=== PATIENT | female | born 1960 | race Hispanic/Latino ===

== ENCOUNTER → 2019-01-20 | Outpatient (CLI) | payer OTHER | END | disposition home or self-care (01) | LOC: RAH 14:21 | PROVIDERS: ATTEND Internal Medicine | DX: Z12.31 Encounter for screening mammogram for malignant neoplasm of breast (principal) | CPT/HCPCS: 77067 ==

== ENCOUNTER 2025-03-07 20:27 | Emergency (ER) | payer OTHER ==
[~2025-03-07] VITALS: Ht 154.9 cm; Wt 83.9 kg
[2025-03-07 20:29] VITALS: TEMP 97.1
--- NOTE | 2025-03-07 20:30 | NUR ---
UA CUP PROVIDED
--- NOTE | 2025-03-07 20:38 | NUR ---
UA COLLECTED AND SENT
[2025-03-07 20:47] LABS: IMMATURE GRANULOCYTE ABSOLUTE 0.05 K/uL (0-1); NUCLEATED RED BLOOD CELLS 0.0 % (0.0-0.19); PLATELET COUNT (AUTO) 536 K/uL (130-400); RED BLOOD CELL COUNT(AUTO) 4.49 MIL/uL (4.00-5.50); RED CELL DISTRIBUTION WIDTH 18.5 % (11.0-15.5); WHITE BLOOD COUNT (AUTO) 12.3 K/uL (4.8-10.8)
[2025-03-07 20:50] LABS: APPEARANCE,URINE CLEAR (CLEAR); GLUCOSE, URINE (UA) 50 mg/dL (NEGATIVE); LEUKOCYTE ESTERASE ,URINE NEGATIVE Leu/uL (NEGATIVE); NITRATE,URINE NEGATIVE (NEGATIVE); OCCULT BLOOD,URINE MODERATE (NEGATIVE)
[2025-03-07 20:51] LABS: ADD UA MICROSCOPIC NO
--- NOTE | 2025-03-07 20:52 | NUR ---
ACTIVE VOMITING IN LOBBY. THERESA RAHMAN MADE AWARE
[2025-03-07 20:55] LABS: CREATININE 1.0 mg/dL (0.5-1.0); GLOMERULAR FILTR. RATE CALC 62.0 mL/min (>90); GLUCOSE,RANDOM 177.0 mg/dL (70-105); SODIUM SERUM 138.0 mmol/L (136-145); UREA NITROGEN, BLOOD 19.0 mg/dL (7-18)
--- NOTE | 2025-03-07 20:55 | NUR ---
REPORT TO LALITO RAHMAN
--- NOTE | 2025-03-07 20:57 | ERN ---
ED Note History of Present Illness Stated Complaint: ABD PAIN, CONSTIPATION Chief Complaint: Abdominal Pain Time Seen by MD: 20:40 Dictation: Patient is a 65-year-old female who presented to the ER complaining of left flank pain radiating to the left lower back. Stated the pain started around 6:30 p.m. which was 3 hours previous presentation to the ER, it was associated with the nausea and vomiting x1. Patient denies fever, chills, no urinary symptoms Allergies: Coded Allergies: Penicillins (Unverified Allergy, Unknown, 03/07/25) Home Meds Active Scripts Acetaminophen (Tylenol) 325 Mg Tablet, 1-2 TAB PO QIDP PRN for pain or fever for 7 Days, #30 TAB 0 Refills Prov:DANNY MARTÍNEZ MD 03/07/25 Ketorolac Tromethamine (Ketorolac Tromethamine) 10 Mg Tablet, 1 TAB PO Q6HPRN PRN for pain for 5 Days, #20 TAB 0 Refills Prov:DANNY MARTÍNEZ MD 03/07/25 Past Medical History Past Medical History: CAD, Diabetes-Type II, Hypertension Surgical History: Unknown Review of System Dictation NEGATIVE EXCEPT PER HPI Constitutional: Negative for fever,chills, and weight loss Eyes: Negative for injury, pain,redness, and discharge ENT: Negative for injury,pain or swelling Cardiovascular: denies chest pain, palpitations, and edema Respiratory: Negative for shortness of breath, cough, and wheezing, Abdomen/GI: Left inguinal area pain Back: Negative for injury and pain : Negative for injury, bleeding and discharge MS/Extremity: Negative for injury and deformity Skin: Negative for rash, and discoloration Neuro: Negative for headache, weakness, numbness, tingling, and seizure Psych: Negative for suicide ideation, homicidal ideation, and hallucinations Initial Vital Sign VS Vital Signs Date Time Temp Pulse Resp B/P (MAP) Pulse Ox O2 Delivery O2 Flow Rate FiO2 03/07/25 20:29 97.2 68 20 155/80 100 Room Air 03/07/25 21:11 0 21 Physical Exam Dictation General: awake, alert, NAD Head/Face: Normocephalic, atraumatic Eyes: PERRL, EOMI, vision at baseline ENT: oral cavity clear, TMs clear, no signs of infection Neck: Trachea midline, supple, no nuchal rigidity Cardiovascular: RRR, normal S1/S2, No MRGs, no JVD Respiratory: CTAB, no respiratory distress, No rales or wheezes Abdomen: Soft , left lower abdomen tenderness, left inguinal area with the nurse Genitourinary: Left CVA tenderness Skin: Warm, dry, normal turgor, no rash MS/Extremity: Pulses equal, no cyanosis, neurovascular intact, FROM Neuro: COAx4, GCS 15, strength 5/5, CN 2-12 intact, normal cerebellar exam, normal gait, Psych: Normal behavior, mood, and affect normal Results (Laboratory/Radiology) Laboratory/Radiology Laboratory Tests Test 03/07/25 20:40 White Blood Count 12.3 K/uL (4.8-10.8) H Red Blood Count 4.49 MIL/uL (4.00-5.50) Hemoglobin 10.8 g/dL (12.0-16.0) L Hematocrit 35.9 % (36-48) L Mean Corpuscular Volume 80.0 fL (79-99) Mean Corpuscular Hemoglobin 24.1 pg (27.0-33.0) L Mean Corpuscular Hemoglobin Concent 30.1 g/dL (32.0-36.0) L Red Cell Distribution Width 18.5 % (11.0-15.5) H Platelet Count 536 K/uL (130-400) H Mean Platelet Volume 9.5 fL (7.5-10.5) Immature Granulocyte % (Auto) 0.4 % (0-1) Neutrophils (%) (Auto) 64.5 % (40.0-77.0) Lymphocytes (%) (Auto) 25.0 % (21.0-51.0) Monocytes (%) (Auto) 8.0 % (3.0-13.0) Eosinophils (%) (Auto) 1.7 % (0.0-8.0) Basophils (%) (Auto) 0.4 % (0.0-5.0) Neutrophils # (Auto) 7.9 K/uL (1.8-7.7) H Lymphocytes # (Auto) 3.1 K/uL (1.0-4.8) Monocytes # (Auto) 1.0 K/uL (0.1-1.0) Eosinophils # (Auto) 0.21 K/uL (0.00-0.70) Basophils # (Auto) 0.05 K/uL (0.00-0.20) Absolute Immature Granulocyte (auto 0.05 K/uL (0-1) Nucleated Red Blood Cells 0.0 % (0.0-0.19) Red Blood Cell Morphology See comments Urine Color COLORLESS (YELLOW) Urine Appearance CLEAR (CLEAR) Urine pH 7.0 (5.0-8.0) Urine Specific Broussard 1.014 (1.001-1.031) Urine Protein NEGATIVE mg/dL (NEGATIVE) Urine Glucose (UA) 50 mg/dL (NEGATIVE) H Urine Ketones 5 mg/dL (NEGATIVE) H Urine Occult Blood MODERATE (NEGATIVE) H Urine Nitrate NEGATIVE (NEGATIVE) Urine Bilirubin NEGATIVE mg/dL (NEGATIVE) Urine Urobilinogen 0.2 mg/dL (0.2-1.0) Urine Leukocyte Esterase NEGATIVE Carolyn/uL Sodium Level 138 mmol/L (136-145) Potassium Level 4.0 mmol/L (3.5-5.1) Chloride Level 104 mmol/L (101-111) Carbon Dioxide Level 25 mmol/L (21-32) Blood Urea Nitrogen 19 mg/dL (7-18) H Creatinine 1.0 mg/dL (0.5-1.0) Glomerular Filtration Rate Calc 62 mL/min (>90) Random Glucose 177 mg/dL (70-105) H Total Calcium 8.4 mg/dL (8.5-10.1) L Troponin I High Sensitivity 14 ng/L (4-50) Lipase 27 U/L (16-77) ED Course ED Course Orders Procedure Category Date Status Time Vital Signs Per CPOE 03/07/25 Transmitted Routine 20:30 Saline Lock Iv CPOE 03/07/25 Transmitted 20:30 Cbc With Differential LAB 03/07/25 Complete 20:30 Lipase LAB 03/07/25 Complete 20:30 Urinalysis Profile LAB 03/07/25 Complete 20:30 Basic Metabolic Panel LAB 03/07/25 Complete 20:30 Ketorolac PHA 03/07/25 Complete Tromethamine 15mg/Ml 21:00 Ondansetron 4mg Inj PHA 03/07/25 Complete (Zofran 4mg Inj) 21:30 Ct Abdomen/Pelvis CT 03/07/25 Resulted W/Wo Contras 21:22 0.9%Nacl 1000ml (Ns PHA 03/07/25 Complete 1000ml) 21:30 Iohexol (Omnipaque) PHA 03/07/25 Complete 21:47 Morphine 2mg Syg PHA 03/07/25 Complete (Morphine 2mg Syg) 22:00 12 Lead Ekg Tracing- EKG 03/07/25 Complete Technical 21:47 Troponin I High LAB 03/07/25 Complete Sensitivity 21:47 Tamsulosin Hcl PHA 03/07/25 Complete (Flomax) 23:30 Ketorolac PHA 03/08/25 Logged Tromethamine 00:00 Current Medications Medications (Trade) Dose Ordered Sig/Latricia Route PRN Reason Start Time Stop Time Status Last Admin Dose Admin Iohexol (Omnipaque) 75 ml STK-MED ONCE IV 03/07/25 21:47 03/07/25 21:47 DC Ketorolac Tromethamine (ketOROlac troMETHamine) 10 mg ONCE PO 03/08/25 00:00 03/13/25 00:00 UNV Ketorolac Tromethamine (toRADol) 15 mg ONCE ONCE IV 03/07/25 21:00 03/07/25 21:01 DC 03/07/25 21:23 Morphine Sulfate (morPHINE 2MG SYG) 2 mg ONCE ONCE IVP 03/07/25 22:00 03/07/25 22:01 DC 03/07/25 22:33 Ondansetron HCl (zoFRAN 4MG INJ) 4 mg ONCE ONCE IVP 03/07/25 21:30 03/07/25 21:31 DC 03/07/25 21:24 Sodium Chloride 1,000 ml @ 0 mls/hr ONCE ONCE IV 03/07/25 21:30 03/07/25 21:31 DC 03/07/25 21:33 Tamsulosin HCl (FloMAX) 0.8 mg ONCE ONCE PO 03/07/25 23:30 03/07/25 23:31 DC Vital Signs Date Time Temp Pulse Resp B/P (MAP) Pulse Ox O2 Delivery O2 Flow Rate FiO2 03/07/25 22:41 84 18 157/77 97 Room Air* 0 21 03/07/25 21:11 68 18 178/90 99 Room Air* 0 21 03/07/25 20:29 97.2 68 20 155/80 100 Room Air Medical Decision Making MDM Patient is a 65-year-old female who presented to the ER complaining of left flank pain radiating to the left lower back. Stated the pain started around 6:30 p.m. which was 3 hours previous presentation to the ER, it was associated with the nausea and vomiting x1. Patient denies fever, chills, no urinary symptoms UTI Nephrolithiasis Diverticulitis Constipation CT ABD IMPRESSION: 0.4 cm obstructive left upper ureteric calculus causing mild upstream hydroureteronephrosis and perinephric fat stranding. Mild constipation. Small fat-containing umbilical hernia. Ordered IV fluids and Flomax, pain medication. DX & DISP Disposition: Discharge Departure Impression: Primary Impression: Ureteral calculus, left Additional Impression: Hydronephrosis due to obstruction of ureter Condition: Improved Scripts Acetaminophen (Tylenol) 325 Mg Tablet 1-2 TAB PO QIDP PRN for pain or fever for 7 Days, #30 TAB 0 Refills Prov: DANNY MARTÍNEZ MD 03/07/25 Ketorolac Tromethamine (Ketorolac Tromethamine) 10 Mg Tablet 1 TAB PO Q6HPRN PRN for pain for 5 Days, #20 TAB 0 Refills Prov: DANNY MARTÍNEZ MD 03/07/25 Additional Instructions: Patient has must follow up with Urology as outpatient. RETURN TO ER FOR ANY ACUTE OR WORSENING SYMPTOMS. FOLLOW-UP IN 1-2 DAYS WITH PRIMARY PROVIDER FOR RECHECK OF TODAY'S SYMPTOMS. Referrals: LOBO CARLTON MD (PCP) HAKAN MC MD Time of Disposition: 23:38 DANNY MARTÍNEZ MD Mar 07, 2025 20:57
[2025-03-07] MEDS: 0.9%NACL 1000ML 1,000 ML IV ONE (21:33)
[2025-03-07] MEDS ORDERED: IOHEXOL-350 75 ML VIAL IV ONE (21:47)
--- NOTE | 2025-03-07 22:25 | EKG ---
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
--- NOTE | 2025-03-07 23:20 | HMCIMG ---
EXAM: CT Abdomen and Pelvis with and without IV contrast CLINICAL HISTORY: Patient presents with abdominal pain. TECHNIQUE: Axial computed tomography images of the abdomen and pelvis with and without intravenous contrast. CONTRAST: Omnipaque 350. COMPARISON: None provided. FINDINGS: LUNG BASES: Unremarkable. No pleural effusions are seen. LIVER: Tiny, old calcified granuloma in segment 8 of the liver. GALLBLADDER AND BILE DUCTS: The gallbladder appears within normal limits. No radioopaque gallstones are seen. No biliary ductal dilatation is evident. PANCREAS: Mild fatty atrophy. SPLEEN: Unremarkable. ADRENAL GLANDS: Unremarkable. KIDNEYS, URETERS, AND BLADDER: Tiny right renal cortical calcification.0.4 cm obstructive left upper ureteric calculus causing mild upstream hydroureteronephrosis and perinephric fat stranding. The left kidney shows delayed enhancement and excretion of contrast. The right kidney appears within normal limits. There is no right hydronephrosis or hydroureter. No urinary calculi are seen in the bladder. STOMACH AND BOWEL: Under distended bowel loops. No evidence of bowel obstruction. No evidence suggesting enteritis or colitis. Mild constipation. APPENDIX: No evidence of acute appendicitis on CT examination. PERITONEUM: No free fluid. No free air. LYMPH NODES: No lymphadenopathy is evident. REPRODUCTIVE: Unremarkable as visualized. VASCULATURE: No evidence of abdominal aortic aneurysm. BONES: Degenerative changes in the spine. No aggressive appearing osseous lesion. No acute osseous pathology evident. ABDOMINAL WALL: Small fat-containing umbilical hernia. IMPRESSION: 0.4 cm obstructive left upper ureteric calculus causing mild upstream hydroureteronephrosis and perinephric fat stranding. Mild constipation. Small fat-containing umbilical hernia. /Star
[2025-03-07] MEDS ORDERED: KETO10TA2 PO (23:37)
[2025-03-07] MEDS ORDERED: ACET-2247 PO (23:37)
[2025-03-07 23:56] VITALS: BP 148/76; PULSE 72; RESP 16; O2SAT 96
== END 2025-03-08 00:24 | disposition home or self-care (01) ==
LOC: EDH 20:27
DX: N13.2 Hydronephrosis with renal and ureteral calculous obstruction (principal); E11.9 Type 2 diabetes mellitus without complications; I10 Essential (primary) hypertension; I25.10 Atherosclerotic heart disease of native coronary artery without angina pectoris; Z79.899 Other long term (current) drug therapy; Z88.0 Allergy status to penicillin
CPT/HCPCS: 99285; 74178; 96374; 96375; 84484; 80048; 83690; 85025; 81003; 36415; 93005; J1885; J2270; J7030; J2405; Q9967